=== PATIENT | female | born 1990 ===

== ENCOUNTER 2017-03-20 08:20 | Inpatient (IN) | payer BC ==
[2017-03-20] MEDS ORDERED: ELECTROLYTE-148 SOLN 1,000 ML IV SCH ×2 (08:30→09:31)
[2017-03-20] MEDS ORDERED: AMPICILLIN - 100 ML IVPB ONE (08:30)
[2017-03-20 09:13] VITALS: BMI 32.8
[2017-03-20] MEDS ORDERED: FENTANYL/BUPIVACAINE/NS/PF - PCEA - 50 ML DISP.SYRIN EP SCH (09:30)
[2017-03-20 09:32] LABS: BASOPHIL 0.2 % (0-2.0); EOSINOPHIL 0.4 % (0-4.5); MCH 26.1 pg (25.7-33.7); MCHC 32.4 g/dl (32.0-36.0); MEAN CELL VOLUME 80.5 fl (80-96); MEAN PLT VOLUME 11.1 fl (7.5-11.1); NEUTROPHILS 81.2 % (42.8-82.8); PLATELET COUNT 103 K/MM3 (134-434); RDW 16.5 % (11.6-15.6); WHITE BLOOD COUNT 13.1 K/mm3 (4.0-10.0)
[2017-03-20 09:44] LABS: INR 0.95 (0.82-1.09); PROTHROMBIN TIME (PATIENT) 10.4 SEC (9.98-11.88)
[2017-03-20 09:47] LABS: ACTIVATED PTT 29.8 SECONDS (26.9-34.4)
[2017-03-20 10:08] LABS: ANION GAP 7 (8-16); CALCIUM 8.6 mg/dL (8.5-10.1); CO2 22 mmol/L (21-32); CREATININE 0.6 mg/dL (0.55-1.02); GLUCOSE,RANDOM 91 mg/dL (74-106)
[2017-03-20] MEDS ORDERED: OXYTOCIN 15 UNITS/ LR 250 ML 250 ML IVPB SCH (10:30)
--- NOTE | 2017-03-20 10:38 | HP ---
Past Medical History - Admission Chief Complaint: 36 y/o female presented to the ;ab pr and delivery c/o onset of labor History of Present Illness: antepartum cccourse has been untemarkable History Source: Patient Limitations to Obtaining History: No Limitations, Clinical Condition, Dementia, Intoxication, Intubated, Language Barrier, Physical Impairment, Poor Historian, Uncooperative, Unresponsive, Other - Past Medical History Cardiovascular: No: AFIB, Aneurysm, Aortic Insufficiency, Aortic Stenosis, CAD, CHF, Deep Vein Thrombosis, HTN, Hyperlipdemia, [place], Mitral Insufficiency, Mitral Stenosis, Murmur, Pulmonary Hypertension, Other Gastrointestinal: No: Ascites, Cancer, Constipation, Crohn's Disease, Diverticulitis, Diverticulosis, Esophageal Varices, Gastritis, GERD, GI Bleed, Hemorrhoids, Hiatal Hernia, Inflamatory Bowel Disease, Irritable Bowel Disease, Pancreatitis, Peptic Ulcer Disease, Ulcerative Colitis, Other Hepatobiliary: No: Cirrhosis, Cholelithiasis, Cholecystitis, Choledocholithiasis , Hepatitis A, Hepatitis B, Hepatitis C, Other Renal/: No: Renal Failure, Renal Inusuff, BPH, Cancer, Hematuria, Hemodialysis , Neurogenic Bladder, Renal Calculi, UTI, Other ...: 2 ...Para: 0 ...Term: 0 ...: 0 ...Spon : 0 ...Induced : 1 ...Multiple Gestation: 0 ...LMP: 06/17/16 ... Weeks Gestation by Dates: 39.3 ...EDC by Dates: 03/24/17 ...EDC by Sono: 03/24/17 Psych: No: Addictions, Anxiety, Bipolar, Depression, Panic, Psychosis, Schizophrenia, Other Musculoskeletal: No: Bursitis, Chronic low back pain, Hemiparesis, Hemiplegia, Osteoarthritis, Paraplegia, Other ENT: No: Allergic Rhinitis, Sinusitis, Other Dermatology: No: Basal Cell, Cellulitis, Eczema, Melanoma, Psoriasis, Squamous Cell, Other - Past Surgical History Past Surgical History: No: None, AAA Repair, AICD, Amputation, Appendectomy, Arthrosocopy, AV Fistula/Graft, Bariatric Surgery, Breast Biopsy, Bypass, CABG, Carotid Endarterectomy, Cataract Removal, Cholecystectomy, Colectomy, Colonoscopy, Colostomy, Craniotomy, , Cystectomy, Hernia Repair, Hysterectomy, Ileal Conduit, Ileosotomy, Joint Replacement, Kidney Transplant, Laminectomy, Liver Transplant, Mastectomy, Nephrectomy, Oopherectomy, Orchiectomy, Permanent Pacemaker, Prostatectomy, Splenectomy, Stent, Thoracotomy , TURP, Tonsillectomy, Tubal Ligation, Upper Endoscopy, Valve Replacement, Vasectomy, Vein Stripping/Ligation Hx Myomectomy: No Hx Transabdominal Cerclage: No - Smoking History Smoking history: Never smoked Have you smoked in the past 12 months: No - Alcohol/Substance Use Hx Alcohol Use: No Home Medications - Allergies Allergies/Adverse Reactions: Allergies Allergy/AdvReac Type Severity Reaction Status Date / Time No Known Allergies Allergy Verified 03/20/17 09:35 - Home Medications Home Medications: Ambulatory Orders Vitamins (Sjr) - 1 tab PO DAILY 12/20/16 Family Disease History - Family Disease History Family History: Unremarkable Physical Exam - Maternity Vital Signs: Vital Signs Temperature 98.8 F 03/20/17 08:30 Pulse Rate 84 03/20/17 08:30 Respiratory Rate 20 03/20/17 08:30 Blood Pressure 138/61 03/20/17 08:30 O2 Sat by Pulse Oximetry (%) Constitutional: Yes: Calm Eyes: Yes: WNL HENT: Yes: WNL Neck: Yes: WNL Cardiovascular: Yes: WNL Lungs: Clear to auscultation Breast(s): Yes: WNL - Vaginal Exam/OB Dilatation (cm): 5cm Effacement (%): 90 Amniotic Membrane Status: Bulging Presentation: Vertex/Position - Physical Exam Musculoskeletal: Yes: WNL Edema: No Edema: LUE: 1+, RUE: 1+, LLE: 1+, RLE: 1+ Integumentary: Yes: WNL Deep Tendon Reflex Grade: Normal +2 ...Motor Strength: WNL - Labs Lab Results: CBC, BMP 03/20/17 09:00 03/20/17 09:00
[2017-03-20] MEDS ORDERED: TUBERCULIN PPD 5 TU/0.1ML SYRINGE (IN PATIENT USE ONLY) ID ONE (11:00)
--- NOTE | 2017-03-20 12:02 | PN ---
Delivery - Delivery Type of Anesthesia: Epidural Episiotomy/Laceration: None EBL (cc): 300 Delivery, Single - Feeding Plan Initial Plan: Exclusive throughout hospitalization
--- NOTE | 2017-03-20 12:07 | PN ---
Delivery - Delivery Type of Anesthesia: Epidural Episiotomy/Laceration: None EBL (cc): 300 (delivery of male infant score 99 no complications) Delivery, Single - [place] Feeding Plan Initial Plan: Exclusive throughout hospitalization
[2017-03-20] MEDS ORDERED: BENZOCAINE 20% 57 GM BOTTLE TP PRN (12:08)
[2017-03-20] MEDS ORDERED: BENZOCAINE 28 GM HEMORRHOIDAL OINTMENT TP PRN (12:08)
[2017-03-20] MEDS ORDERED: BISACODYL 10 MG SUPP.RECT RC PRN (12:08)
[2017-03-20] MEDS ORDERED: ACETAMINOPHEN 325 MG TABLET (FP) PO PRN (12:08)
[2017-03-20] MEDS ORDERED: METHYLERGONOVINE MALEATE 0.2 MG/1 ML AMP IM PRN (12:08)
[2017-03-20] MEDS ORDERED: WITCH HAZEL 50% (TUCKS) 40 PAD/JAR PAD TP PRN (12:08)
[2017-03-20] MEDS ORDERED: AMPICILLIN - 100 ML IVPB SCH (12:30)
[2017-03-20] MEDS ORDERED: D5W-LR W/ 20 UNITS OXYTOCIN 1,000 ML IV SCH (12:45)
[2017-03-20] MEDS: IBUPROFEN 600 MG TABLET (FP) PO PRN (17:41)
--- NOTE | 2017-03-21 09:25 | PN ---
Post Progress Note - Subjective Subjective: Pt seen and evaluated - doing well. Pain controlled, VB minimal, tolerating diet, ambulating and voiding. Type of Delivery: Vital Signs: Vital Signs Temperature 98.1 F 03/21/17 05:00 Pulse Rate 88 03/21/17 05:00 Respiratory Rate 18 03/21/17 05:00 Blood Pressure 126/62 03/21/17 05:00 O2 Sat by Pulse Oximetry (%) 100 03/20/17 09:40 Uterus: Yes: Fundus Firm, Fundus below umbilicus Abdomen/GI: Yes: Abdomen soft, Passing flatus, Tolerating PO. No: Abdominal Distention, Tender Lochia: Yes: Rubra Lochia, amount: Small Extremities: Yes: Calves non-tender. No: Edema Perineum: Yes: Intact Activity: Ambulating - Labs Labs: CBC WBC 13.1 K/mm3 (4.0-10.0) H D 03/20/17 09:00 RBC 4.17 M/mm3 (3.60-5.2) 03/20/17 09:00 Hgb 10.9 GM/dL (10.7-15.3) D 03/20/17 09:00 Hct 33.6 % (32.4-45.2) D 03/20/17 09:00 MCV 80.5 fl (80-96) 03/20/17 09:00 MCH 26.1 pg (25.7-33.7) 03/20/17 09:00 MCHC 32.4 g/dl (32.0-36.0) 03/20/17 09:00 RDW 16.5 % (11.6-15.6) H D 03/20/17 09:00 Plt Count 103 K/MM3 (134-434) L D 03/20/17 09:00 MPV 11.1 fl (7.5-11.1) 03/20/17 09:00 Neutrophils % 81.2 % (42.8-82.8) 03/20/17 09:00 Lymphocytes % 13.3 % (8-40) D 03/20/17 09:00 Monocytes % 4.9 % (3.8-10.2) 03/20/17 09:00 Eosinophils % 0.4 % (0-4.5) 03/20/17 09:00 Basophils % 0.2 % (0-2.0) 03/20/17 09:00 Problem List - Problems (1) Normal vaginal delivery Code(s): O80 - ENCOUNTER FOR FULL-TERM UNCOMPLICATED DELIVERY Assessment/Plan 26 y/o PPD#1 s/p normal - AFVSS - CBC pending - regular diet, PO pain meds - encourage ambulation - for discharge home in a.m.
[2017-03-21 09:44] LABS: BASOPHIL 0.2 % (0-2.0); EOSINOPHIL 1.1 % (0-4.5); MCH 26.4 pg (25.7-33.7); MCHC 32.3 g/dl (32.0-36.0); MEAN CELL VOLUME 81.6 fl (80-96); MEAN PLT VOLUME 11.4 fl (7.5-11.1); NEUTROPHILS 77.9 % (42.8-82.8); PLATELET COUNT 95 K/MM3 (134-434); RDW 16.9 % (11.6-15.6); WHITE BLOOD COUNT 12.2 K/mm3 (4.0-10.0)
[2017-03-21] MEDS ORDERED: SENNOSIDES/DOCUSATE COMBO (SENNA PLUS) TABLET (UD) PO PRN (22:00)
[2017-03-22] MEDS: IBUPROFEN 600 MG TABLET (FP) PO PRN (02:01)
--- NOTE | 2017-03-22 08:17 | DS ---
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[employer] Vital Signs: Vital Signs Temperature 98.8 F 03/22/17 01:00 Pulse Rate 79 03/22/17 01:00 Respiratory Rate 20 03/22/17 01:00 Blood Pressure 106/58 03/22/17 01:00 O2 Sat by Pulse Oximetry (%) 97 03/21/17 21:00 Labs: CBC, BMP 03/21/17 06:40 03/20/17 09:00 Delivery - Delivery Type of Anesthesia: Epidural Episiotomy/Laceration: None EBL (cc): 300 Delivery, Single - Stages of Labor Date 1st Stage Initiatied: 03/20/17 Time 1st Stage Initiated: 07:00 Date 2nd Stage Initiated: 03/20/17 Time 2nd Stage Initiated: 11:00 Date of Delivery: 03/20/17 Time of Delivery: 11:44 Time Placenta Delivered: 11:50 - 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 You may walk unlimited amounts of and climb stairs. You may resume driving the car when you feel safe and comfortable behind the wheel. No sexual activity as instructed for 6 weeks. You may shower , no soaking in tubs/baths/pools for 6 weeks. Diet There are no dietary restrictions. Eat healthy, high-fiber foods. Drink 6 to 8 glasses of liquid each day. This will assist in keeping your bowels regular. Pain management You may take Tylenol or Ibuprofen (for example, Motrin, Advil etc.) as needed for pain. Call MD for any of the following: Severe pain not relieved by medication Fever of 101 or higher Excessive bleeding or drainage on dressing Inability to urinate Referrals: Tiffany Henry DO [Staff Physician] - (6 weeks) Disposition: HOME - Home Medications Comprehensive Discharge Medication List: Ambulatory Orders Vitamins (Sjr) - 1 tab PO DAILY 04/10/17 Ibuprofen [Motrin -] 600 mg PO QID PRN #28 tablet 03/21/17
[2017-03-22 11:40] VITALS: BP 123/78; PULSE 91; TEMP 98.1
== END 2017-03-22 13:20 | disposition home or self-care (01) | DRG 775 ==
LOC: JLDR 08:20 → J3W 15:00
PROVIDERS: ADMIT Obstetrics & Gynecology; ATTEND Obstetrics & Gynecology
PROC: 10E0XZZ Delivery of Products of Conception, External Approach (ICD-10-PCS; principal; 2017-03-20)
DX: O80 Encounter for full-term uncomplicated delivery (principal); Z3A.39 39 weeks gestation of pregnancy; Z37.0 Single live birth
CPT/HCPCS: 36415; 59409; 80048; 85025; 85610; 85730; 86593; 86850; 86900; 86901